=== PATIENT | male | born 1955 | race Caucasian/White ===

== ENCOUNTER 2017-05-03 22:43 | Emergency (ER) | payer MEDICARE, OTHER ==
[2017-05-03] MEDS ORDERED: ASPIRIN (CHEWABLE) 81 MG TAB ONE (22:56)
[2017-05-03] MEDS ORDERED: NITROGLYCERIN 0.4 MG 25 EA TAB SL ONE ×2 (22:58→22:59)
[2017-05-03] MEDS ORDERED: ASPIRIN TABLET 325 MG TAB PO ONE (22:59)
[2017-05-03 23:18] VITALS: O2SAT 99
--- NOTE | 2017-05-03 23:30 | RAD ---
EXAM DESCRIPTION: Chest,1 View CLINICAL HISTORY: 61 years Male Chest pain COMPARISON: 01/25/2009 FINDINGS: Stable heart size. Pacemaker in place. Appear more prominent than on the prior examination which may be secondary to film technique. Developing interstitial edema is not excluded. There is no evidence of alveolar infiltrate or consolidation. No pneumothorax and no pleural fluid. IMPRESSION: Prominence of the interstitial markings particularly in the lung bases. Question as a result of film technique. Developing edema is not excluded. Electronically signed by: Harmony Del Real 05/03/2017 11:29 PM CDT
[2017-05-03] MEDS ORDERED: MORPHINE SULFATE INJ 10 MG/ML VIAL IV ONE (23:31)
[2017-05-03] MEDS ORDERED: MORPHINE SULFATE INJ 10 MG/ML VIAL ONE (23:32)
--- NOTE | 2017-05-03 23:51 | ED.PDOC ---
History of Present Illness - General Chief Complaint: Chest Pain/[place] Stated Complaint: chest pain Time Seen by Provider: 05/03/17 22:52 Source: patient, RN notes reviewed, Vital Signs reviewed Exam Limitations: no limitations - History of Present Illness Initial Comments: Patient comes in via private vehicle with c/o chest pain that started @ ~ 19:30 tonight after he was walking across the yard. The pain was pressure, substernal and radiated to his L upper arm. + SOB and diaphoresis. No nausea. He took 6 SLNTG @ home and continued to have pain so he came in. He has had an [place] in the past, 2 bypass surgeries and has a pacemaker. Timing/Duration: 1-3 hours Severity/Quality: severe, pressure Location: substernal Chest Pain Radiation: arms - Left Activities at Onset: activity - had just walked across the yard Improving Factors: medication - Temporary relief with SLNTG Nitro Today/Relief: 0.4 mg x 4, provided at home, mild relief Aspirin Treatment Today: 325 mg x 1, provided by ED Associated Symptoms: diaphoresis, shortness of breath Allergies/Adverse Reactions: Allergies NO KNOWN ALLERGY Allergy (Verified 05/03/17 23:18) Review of Systems - Review of Systems Constitutional: States: diaphoresis EENTM: States: no symptoms reported Respiratory: States: short of breath Cardiology: States: see HPI, chest pain, palpitations. Denies: syncope Gastrointestinal/Abdominal: States: no symptoms reported Musculoskeletal: States: no symptoms reported Skin: States: no symptoms reported Neurological: States: no symptoms reported All other Systems: No Change from Baseline Past Medical History (General) - Patient Medical History Hx Seizures: Yes Hx Cardiac Disorders: Yes Hx Pacemaker: Yes Hx Hypertension: Yes Hx Diabetes: Yes Hx Cancer: No Hx Hepatitis C: No Surgical History: coronary bypass surgery, pacemaker, other - Vaccination History Hx Tetanus, Diphtheria Vaccination: Yes Hx Influenza Vaccination: Yes Hx Pneumococcal Vaccination: Yes - Social History Hx Tobacco Use: Yes Hx Alcohol Use: No Family Medical History - Family History Mother Family History: Unknown Living Status: Physical Exam - Physical Exam General Appearance: Alert, Comfortable, No apparent distress, Well Developed, Well Groomed, Well Hydrated, Well Nourished Neck: non-tender, full range of motion, supple, normal inspection Respiratory: chest non-tender, lungs clear, normal breath sounds, no respiratory distress, no accessory muscle use Cardiovascular/Chest: regular rate, rhythm, no gallop, no JVD, no murmur Peripheral Pulses: radial,right: 2+, radial,left: 2+, dorsalis pedis,right: 1+, dorsalis pedis,left: 1+ Gastrointestinal/Abdominal: normal bowel sounds, non tender, soft, no organomegaly, no pulsatile mass Extremity: normal inspection Neurologic: alert, normal mood/affect, oriented x 3 Skin Exam: normal color, warm/dry Comments: Vital Signs 05/03/17 05/03/17 05/03/17 23:04 23:30 23:37 Temperature 97.9 F Pulse Rate [ 83 83 80 left] Respiratory 18 18 18 Rate Blood Pressure 153/97 109/53 [left] O2 Sat by Pulse 99 99 Oximetry Progress - Progress Progress: 05/03/17 23:53 No relief with SLNTG so gave Morphine 4mg 05/04/17 00:03 Pain down to 5/10 after first dose of Morphine. Will given another 4mg IV Discussed with ER doctor @ [facility] - will transfer for definitive care 05/04/17 00:25 Chest pain now in far left chest and is 3/10 Awaiting [facility] for transfer - Results/Orders Results/Orders: Laboratory Tests 05/03/17 05/03/17 05/03/17 23:10 23:10 23:10 WBC 9.4 RBC 4.44 L Hgb 12.6 L Hct 37.9 L MCV 85.3 MCH 28.3 MCHC 33.2 RDW 14.8 H Plt Count 259 MPV 8.4 Absolute Neuts (auto) 6.40 Absolute Lymphs (auto) 2.40 Absolute Monos (auto) 0.40 Absolute Eos (auto) 0.20 Absolute Basos (auto) 0.10 Neutrophils % 67.5 Lymphocytes % 25.9 Monocytes % 4.2 Eosinophils % 1.7 Basophils % 0.7 D-Dimer, Quantitative 374 H* Sodium 143 Potassium 4.1 Chloride 103 Carbon Dioxide 28 Anion Gap 16.1 BUN 19 H Creatinine 1.09 BUN/Creatinine Ratio 17.4 Random Glucose 118 H Serum Osmolality 288.3 Calcium 9.3 Total Bilirubin 0.7 AST 28 ALT 16 Alkaline Phosphatase 74 Creatine Kinase 91 CK-MB (CK-2) 6.5 H* CK-MB (CK-2) % Not Reportable Troponin I 0.34 H* Serum Total Protein 7.5 Albumin 4.2 Globulin 3.3 Albumin/Globulin Ratio 1.3 - EKG/XRAY/CT EKG: Sinus, ST depression - V3-6 Comments: Rate 97 XRAY: chest - No acute changes per Radiologist Departure - Departure Clinical Impression: Acute myocardial infarction Qualifiers: Myocardial infarction ST status: non-ST elevation myocardial infarction Qualified Code(s): I21.4 - Non-ST elevation (NSTEMI) myocardial infarction Time of Disposition: 00:05 Disposition: Transfer to Hospital Condition: Poor Departure Forms: ED Discharge - Pt. Copy, Patient Portal Self Enrollment Referrals: Kennedy Kelly III, MD [Active Staff] - 1-2 Weeks Transfer to Outside Facility - Transfer Information Accepting Provider:: Dr. Swain Accepting Facility: [facility] Reason for Transfer: specialized care not available
[2017-05-04] MEDS ORDERED: MORPHINE SULFATE INJ 10 MG/ML VIAL IV ONE (00:03)
[2017-05-04 01:05] VITALS: BP 96/54; TEMP 97.8
== END 2017-05-04 01:06 | disposition short-term general hospital (02) ==
LOC: ER 22:43
DX: I21.4 Non-ST elevation (NSTEMI) myocardial infarction (principal); I25.2 Old myocardial infarction; I10 Essential (primary) hypertension; E11.9 Type 2 diabetes mellitus without complications; Z95.1 Presence of aortocoronary bypass graft; Z95.0 Presence of cardiac pacemaker; Z87.891 Personal history of nicotine dependence
CPT/HCPCS: 36415; 71010; 80053; 82550; 82553; 84484; 85025; 85379; 93005; J2270

== ENCOUNTER → 2017-05-31 | Outpatient (CLI) | payer OTHER | END | disposition home or self-care (01) | LOC: NC 11:07 | PROVIDERS: ATTEND Internal Medicine Cardiovascular Disease | DX: I50.32 Chronic diastolic (congestive) heart failure (principal); I48.91 Unspecified atrial fibrillation ==

== ENCOUNTER → 2017-06-05 | Outpatient (CLI) | payer OTHER | LOC: NC 15:43 | PROVIDERS: ATTEND Internal Medicine Cardiovascular Disease | DX: I50.20 Unspecified systolic (congestive) heart failure (principal); I11.0 Hypertensive heart disease with heart failure; I48.91 Unspecified atrial fibrillation ==

== ENCOUNTER → 2017-06-13 | Outpatient (CLI) | payer OTHER | END | disposition home or self-care (01) | LOC: NC 14:01 | PROVIDERS: ATTEND Internal Medicine Cardiovascular Disease | DX: I50.20 Unspecified systolic (congestive) heart failure (principal) ==

== ENCOUNTER → 2017-06-25 | Outpatient (CLI) | payer OTHER | END | disposition home or self-care (01) | LOC: NC 15:56 | PROVIDERS: ATTEND Internal Medicine Cardiovascular Disease | DX: I51.3 Intracardiac thrombosis, not elsewhere classified (principal); I21.4 Non-ST elevation (NSTEMI) myocardial infarction ==

== ENCOUNTER → 2017-07-04 | Outpatient (CLI) | payer OTHER | END | disposition home or self-care (01) | LOC: NC 15:23 | PROVIDERS: ATTEND Internal Medicine Cardiovascular Disease | DX: I48.91 Unspecified atrial fibrillation (principal) ==

== ENCOUNTER 2020-08-22 15:38 | Emergency (ER) | payer OTHER ==
[~2020-08-22 15:38] MED LIST: EPINEPHrine INJ 0.1 MG/ML 10 ML SYG IV ONE; SODIUM BICARBONATE SYRINGE 50 MEQ/50 ML SYG IV ONE
[2020-08-22] MEDS ORDERED: EPINEPHrine INJ 0.1 MG/ML 10 ML SYG IV ONE ×3 (15:40→15:44)
[2020-08-22] MEDS ORDERED: SODIUM BICARBONATE SYRINGE 50 MEQ/50 ML SYG IV ONE (15:44)
--- NOTE | 2020-08-22 16:06 | ED.PDOC ---
History of Present Illness - General Source: RN notes reviewed, Vital Signs reviewed, EMS notes reviewed, family Additional Information: Patient, presents to the ER unresponsive with no pulse no spontaneous circulation and no spontaneous ventilations, patient arrived via EMS. 45 minutes after the initial phone call to 911. Patient was unresponsive at the scene, CPR was initiated by bystanders, per EMS patient never regained spontaneous circulation he was always a systole receive epinephrine by EMS good- quality CPR, and because of a difficult airway arrived with a Gary airway Patient does have hx of corornary artery disease, and the CPR was initiated by patient's - History of Present Illness Allergies/Adverse Reactions: Allergies NO KNOWN ALLERGY Allergy (Verified 05/03/17 23:18) Home Medications: Ambulatory Orders Aspirin [Aspirin Childrens] 81 mg PO DAILY 05/04/17 Atorvastatin Calcium [Lipitor] 20 mg PO DAILY 05/04/17 Carvedilol 12.5 mg PO BID 05/04/17 Cholecalciferol [Eql Vitamin D3] 1,000 unit PO BID 05/04/17 Clonazepam 1 mg PO BEDTIME 05/04/17 Gabapentin 300 mg PO BEDTIME 05/04/17 HYDROcodone 10MG/APAP 325MG [[place] 10/325] 1 ea PO Q6HR PRN 05/04/17 Levetiracetam 500 mg PO BID 05/04/17 Losartan Potassium 100 mg PO DAILY 05/04/17 Metformin HCl [Metformin Hydrochloride] 500 mg PO BID 05/04/17 Naproxen [Naprosyn] 500 mg PO BID 05/04/17 Nitroglycerin 0.4 mg Tab [Nitrostat] 1 ea SL PRN 05/04/17 Omeprazole 20 mg PO AC 05/04/17 Trazodone HCl 100 mg PO BEDTIME 05/04/17 Venlafaxine HCl [Venlafaxine HCl ER] 150 mg PO DAILY 05/04/17 Review of Systems - Review of Systems Unable to Obtain Due To: other - altered mental status Past Medical History (General) - Patient Medical History Hx Seizures: Yes Hx Cardiac Disorders: Yes Hx Congestive Heart Failure: No Hx Pacemaker: Yes Hx Hypertension: Yes Hx Diabetes: Yes Hx Cancer: No Hx Hepatitis C: No - Vaccination History Hx Tetanus, Diphtheria Vaccination: Yes Hx Influenza Vaccination: Yes Hx Pneumococcal Vaccination: Yes - Social History Hx Tobacco Use: Yes Hx Alcohol Use: No Family Medical History - Family History Mother Family History: Unknown Living Status: Physical Exam - Physical Exam General Appearance: Other - critically ill, Eye Exam: bilateral other - dilated fixed and unresponsive Neck: supple, normal inspection Respiratory: other - no ventilations Cardiovascular/Chest: other - no pulse Peripheral Pulses: radial,right: 0, radial,left: 0 Gastrointestinal/Abdominal: no organomegaly - atraumatic, no distention Back Exam: normal inspection Extremity: other - no clnical fractures Neurologic: other - gcs 3 Skin Exam: cyanosis, mottled, other - cold Progress - Progress Progress: Patient was unresponsive and pulseless since 45 minutes prior to arrival to the ER patient does have a history of coronary disease with previous open heart surgery, patient arrived PEA, received epinephrine via IV line, good quality CPR according to the [place] [employer] and ACLS protocols. Patient Accu- Chek was within normal limits, as soon as the patient arrived in the ER he received a dose of sodium bicarbonate, and epinephrine every 3 minutes, along with good quality CPR every 2 minutes, intubation was done immediately without any delays using a glide scope. After 20 minutes of CPR, epinephrine x5 and 2 doses of sodium bicarb, patient did not regain spontaneous circulation of ventilation, the patient was declared . Knowing that this patient was down for more than 20 minutes the likelihood of survival are diminished greatly The patient received a N95 mask, and I was able to speak with the patient's but obviously she was very anxious and very concerned and crying and hysterical, so was not able to get much information from her said that she started CPR at home 08/22/20 16:09 Procedures - Intubation Time of Intubation: 03:55 Intubation Method: orotracheal Tube Size (cm): 7.5 Breath Sounds after Intubation: equal Intubation Complications: no complications Post Intubation Xray: No Departure - Departure Clinical Impression: Cardiac arrest Disposition: Condition: Poor Home Medications: Ambulatory Orders Aspirin [Aspirin Childrens] 81 mg PO DAILY 05/04/17 Atorvastatin Calcium [Lipitor] 20 mg PO DAILY 05/04/17 Carvedilol 12.5 mg PO BID 05/04/17 Cholecalciferol [Eql Vitamin D3] 1,000 unit PO BID 05/04/17 Clonazepam 1 mg PO BEDTIME 05/04/17 Gabapentin 300 mg PO BEDTIME 05/04/17 HYDROcodone 10MG/APAP 325MG [[place] 10/325] 1 ea PO Q6HR PRN 05/04/17 Levetiracetam 500 mg PO BID 05/04/17 Losartan Potassium 100 mg PO DAILY 05/04/17 Metformin HCl [Metformin Hydrochloride] 500 mg PO BID 05/04/17 Naproxen [Naprosyn] 500 mg PO BID 05/04/17 Nitroglycerin 0.4 mg Tab [Nitrostat] 1 ea SL PRN 05/04/17 Omeprazole 20 mg PO AC 05/04/17 Trazodone HCl 100 mg PO BEDTIME 05/04/17 Venlafaxine HCl [Venlafaxine HCl ER] 150 mg PO DAILY 05/04/17
[2020-08-22 16:13] VITALS: O2SAT 81
[2020-08-22 16:53] VITALS: BP 0/0
== END 2020-08-22 17:00 | disposition expired ==
LOC: ER 15:38
DX: I46.9 Cardiac arrest, cause unspecified (principal); I25.10 Atherosclerotic heart disease of native coronary artery without angina pectoris; R56.9 Unspecified convulsions; I10 Essential (primary) hypertension; E11.9 Type 2 diabetes mellitus without complications; Z95.0 Presence of cardiac pacemaker; Z87.891 Personal history of nicotine dependence; Z79.82 Long term (current) use of aspirin; Z79.899 Other long term (current) drug therapy; Z79.84 Long term (current) use of oral hypoglycemic drugs